=== PATIENT | male | born 1940 | race Caucasian/White ===

== ENCOUNTER 2021-10-01 15:18 | Outpatient (CLI) | payer MEDICARE | END 2021-10-01 15:19 | disposition home or self-care (01) | LOC: ULT 15:18 | PROVIDERS: ATTEND Family Medicine | DX: L72.9 Follicular cyst of the skin and subcutaneous tissue, unspecified (principal); R60.0 Localized edema | CPT/HCPCS: 76999 ==

== ENCOUNTER 2022-02-22 19:30 | Outpatient (CLI) | payer MEDICARE | END 2022-02-22 19:31 | disposition home or self-care (01) | LOC: SLEEPLAB 19:30 | PROVIDERS: ATTEND Family Medicine | DX: G47.33 Obstructive sleep apnea (adult) (pediatric) (principal); R53.83 Other fatigue; G47.61 Periodic limb movement disorder; E66.9 Obesity, unspecified; R06.83 Snoring; G47.10 Hypersomnia, unspecified; G47.52 REM sleep behavior disorder; Z68.35 Body mass index [BMI] 35.0-35.9, adult | CPT/HCPCS: 95811 ==

== ENCOUNTER 2022-06-22 15:15 | Outpatient (CLI) | payer MEDICARE ==
[2022-06-22 17:31] LABS: Hemoglobin 11.5 g/dL (13.5-17.5); Mean Corpuscular HGB CONC 32.2 g/dL (32.0-36.0); Mean Corpuscular Hemoglobin 28.8 pg (27.0-33.0); Mean Corpuscular Volume 89.5 fl (81.2-95.1); Mean Platelet Volume 11.6 fl (7.4-10.4); Platelet Count 273 10x3/uL (150-450); Red Blood Cell (RBC) Count 3.99 10x6/uL (4.32-5.72); White Blood Cell (WBC) Count 7.5 10x3/uL (3.5-10.5)
[2022-06-22 17:46] LABS: INR-International Normal Ratio 0.9; PTT 25.8 sec (22.0-33.0); Prothrombin Time 9.9 sec (9.5-12.1)
[2022-06-22 17:47] LABS: Anion Gap 19 mmol/L (10-20); BUN (Urea Nitrogen) 34 mg/dL (8.4-25.7); Calc. Creatinine Clearance 0 mL/min (70-130); Calcium 9.5 mg/dL (7.8-10.44); Carbon Dioxide 23 mmol/L (23-31); Chloride 99 mmol/L (98-107); Estimated GFR 42; Glucose 315 mg/dL (83-110); Potassium 4.7 mmol/L (3.5-5.1); Sodium 136 mmol/L (136-145)
== END 2022-06-22 15:16 | disposition home or self-care (01) ==
LOC: LABBT 15:15
PROVIDERS: ATTEND Surgery
DX: Z01.812 Encounter for preprocedural laboratory examination (principal); M51.26 Other intervertebral disc displacement, lumbar region; M48.062 Spinal stenosis, lumbar region with neurogenic claudication
CPT/HCPCS: 80048; 85027; 85610; 85730

== ENCOUNTER 2022-06-25 06:06 | Inpatient (IN) | payer MEDICARE ==
[2022-06-22 15:58] VITALS: BMI 31.4
[2022-06-25] MEDS ORDERED: HYDROmorphone 0.5 MG/0.5 ML SYRINGE ONE (06:31)
[2022-06-25] MEDS ORDERED: Dexmedetomidine 200 MCG/2 ML VIAL ONE (06:31)
[2022-06-25] MEDS ORDERED: fentaNYL PF 100 MCG/2 ML SYRINGE ONE (06:31)
[2022-06-25] MEDS ORDERED: Thrombin 5000 UNITS/5 ML VIAL ONE (06:42)
[2022-06-25] MEDS ORDERED: Vancomycin 1 GM VIAL ONE (06:42)
[2022-06-25] MEDS ORDERED: Sodium Chloride 0.9% 100 ML ONE (07:20)
[2022-06-25] MEDS ORDERED: CEFAZOLIN 2 GM VIAL ONE (07:20)
[2022-06-25] MEDS ORDERED: Metoclopramide HCl 10 MG/2 ML VIAL ONE (07:39)
[2022-06-25] MEDS ORDERED: Rocuronium Bromide 10 MG/ML (10ML VIAL) ONE (07:39)
[2022-06-25] MEDS ORDERED: Ondansetron PF 4 MG/2 ML Vial ONE ×2 (07:39)
[2022-06-25] MEDS ORDERED: PHENYLEPHRINE-NS 100 MCG/ML 10 ML SYRINGE ONE ×2 (07:39→09:26)
[2022-06-25] MEDS ORDERED: Lidocaine 1% PF 5 ML VIAL ONE (07:39)
[2022-06-25] MEDS ORDERED: PROPOFOL 200 MG/20 ML VIAL ONE (07:39)
[2022-06-25] MEDS ORDERED: Dexamethasone 20 MG/5 ML VIAL ONE (07:39)
[2022-06-25] MEDS ORDERED: Phenylephrine 10 MG/ML VIAL ONE (09:26)
[2022-06-25] MEDS ORDERED: Phenylephrine 1% Nasal Spray 15 ML BOT ONE (09:26)
[2022-06-25] MEDS ORDERED: SUGAMMADEX SODIUM 200 MG/2 ML VIAL ONE (10:38)
[2022-06-25] MEDS ORDERED: fentaNYL 50 mcg/mL 1 mL Vial ONE (12:02)
[2022-06-25] MEDS ORDERED: HYDROcodone/Acetaminophen 7.5/325 mg Tablet PO PRN (12:03)
[2022-06-25] MEDS ORDERED: Promethazine HCl 25 MG/ML VIAL IVPB PRN (12:03)
[2022-06-25] MEDS ORDERED: traMADol HCl 50 MG TAB PO PRN (12:03)
[2022-06-25] MEDS ORDERED: Acetaminophen 325 MG TAB PO PRN (12:03)
[2022-06-25] MEDS ORDERED: Morphine 2 MG/ML VIAL SLOW IVP PRN (12:03)
[2022-06-25] MEDS ORDERED: Ondansetron PF 4 MG/2 ML Vial IVP PRN (12:03)
[2022-06-25] MEDS ORDERED: diphenhydrAMINE 25 MG CAP PO PRN (12:03)
[2022-06-25] MEDS ORDERED: Diazepam 5 MG TAB PO PRN (12:06)
[2022-06-25] MEDS ORDERED: hydrALAZINE 20 MG/ML VIAL SLOW IVP PRN (12:06)
[2022-06-25] MEDS: Sodium Chloride 0.9% 1,000 ML IV SCH (13:40)
[2022-06-25 14:01] LABS: Hemoglobin 10.9 g/dL (14.0-18.0)
[2022-06-25] MEDS: CEFAZOLIN 2 GM in Sodium Chloride 0.9% 100 ML IVPB SCH ×2 (14:37→21:29)
[2022-06-25] MEDS: metFORMIN 500 MG TAB PO SCH (16:27)
[2022-06-25] MEDS: Acetaminophen/Codeine 30-300mg Tablet PO PRN ×2 (16:27→21:26)
[2022-06-25] MEDS: rOPINIRole HCl 1 MG TAB PO SCH ×2 (16:27→21:41)
[2022-06-25] MEDS: Gabapentin 300 MG CAP PO SCH (21:27)
[2022-06-25] MEDS: Atorvastatin Calcium 40 MG TAB PO SCH (21:28)
[2022-06-25] MEDS ORDERED: tiZANidine HCl 4 MG TAB PO PRN (23:06)
[2022-06-26] MEDS ORDERED: HumaLOG 300 UNITS/3 ML VIAL SC PRN (00:13)
[2022-06-26] MEDS ORDERED: Dextrose 50% Abboject 50 ML SYRINGE SLOW IVP PRN (00:13)
[2022-06-26] MEDS ORDERED: Dextrose 5% in Water 1,000 ML IV PRN (00:13)
[2022-06-26] MEDS ORDERED: Insulin Regular 300 UNITS/3 ML VIAL SC SCH (00:30)
[2022-06-26] MEDS: HYDROcodone/Acetaminophen 5/325 mg Tablet PO PRN ×2 (00:33→11:19)
[2022-06-26] MEDS: Sodium Chloride 0.9% 1,000 ML IV SCH ×2 (02:43→15:39)
[2022-06-26 05:27] LABS: #Lymphocytes 1.1 thou/uL (1.20-3.40); #Monocytes 0.9 thou/uL (0.11-0.59); %Basophils 0.2 % (0.0-1.0); %Eosinophils 0.4 % (0.0-10.0); %Lymphocytes 12.4 % (21.0-51.0); %Monocytes 9.6 % (0.0-10.0); %Neutrophils 77.3 % (42.0-75.0); Mean Corpuscular HGB CONC 34.5 g/dL (32.0-36.0); Mean Corpuscular Hemoglobin 31.5 pg (27.0-31.0); Mean Corpuscular Volume 91.4 fl (78.0-98.0); Mean Platelet Volume 9.2 fL (7.4-10.4); Platelet Count 183 10x3/uL (130-400); Red Blood Cell (RBC) Count 3.17 mill/uL (4.70-6.10); White Blood Cell (WBC) Count 9.1 10x3/uL (4.8-10.8)
[2022-06-26 05:32] LABS: Hemoglobin A1c 9.5 % (4.0-6.0)
[2022-06-26 05:46] LABS: Anion Gap 13 mmol/L (10-20); BUN (Urea Nitrogen) 28 mg/dL (8.4-25.7); Calc. Creatinine Clearance 58 mL/min (70-130); Calcium 8.8 mg/dL (7.8-10.44); Carbon Dioxide 23 mmol/L (23-31); Chloride 101 mmol/L (98-107); Estimated GFR 50; Glucose 329 mg/dL (83-110); Potassium 4.2 mmol/L (3.5-5.1); Sodium 133 mmol/L (136-145)
[2022-06-26] MEDS: CEFAZOLIN 2 GM in Sodium Chloride 0.9% 100 ML IVPB SCH ×3 (06:50→21:02)
[2022-06-26] MEDS ORDERED: VITAMIN E MIXED PO SCH (09:00)
[2022-06-26] MEDS: Acetaminophen/Codeine 30-300mg Tablet PO PRN (09:00)
[2022-06-26] MEDS ORDERED: [UNRECOGNIZED DRUG - OTHER] PO SCH (09:00)
[2022-06-26] MEDS ORDERED: UBIDECARENONE PO SCH (09:00)
[2022-06-26] MEDS: Gabapentin 300 MG CAP PO SCH ×2 (09:01→20:20)
[2022-06-26] MEDS: Lisinopril 5 MG TAB PO SCH (09:01)
[2022-06-26] MEDS: metFORMIN 500 MG TAB PO SCH ×2 (09:01→17:19)
[2022-06-26] MEDS: Pioglitazone HCl 15 MG TAB PO SCH (09:01)
[2022-06-26] MEDS: Alogliptin 25 MG TAB PO SCH (09:01)
[2022-06-26] MEDS: rOPINIRole HCl 1 MG TAB PO SCH ×3 (09:07→20:25)
[2022-06-26] MEDS: HumaLOG 300 UNITS/3 ML VIAL SC PRN ×2 (12:48→17:20)
[2022-06-26] MEDS: Atorvastatin Calcium 40 MG TAB PO SCH (20:20)
[2022-06-26] MEDS: HYDROcodone/Acetaminophen 10/325 mg Tablet PO PRN (20:21)
[2022-06-27 05:11] LABS: #Eosinphils 0.2 thou/uL (0.0-0.7); #Lymphocytes 1.3 thou/uL (1.20-3.40); #Neutrophils 6.8 thou/uL (1.40-6.50); %Basophils 0.3 % (0.0-1.0); %Eosinophils 2.2 % (0.0-10.0); %Lymphocytes 13.7 % (21.0-51.0); %Neutrophils 72.8 % (42.0-75.0); Hemoglobin 8.2 g/dL (14.0-18.0); Mean Corpuscular Hemoglobin 29.5 pg (27.0-31.0); Mean Corpuscular Volume 92.2 fl (78.0-98.0); Platelet Count 150 10x3/uL (130-400); RBC Distribution Width 13.1 % (11.5-14.5); Red Blood Cell (RBC) Count 2.79 mill/uL (4.70-6.10); White Blood Cell (WBC) Count 9.4 10x3/uL (4.8-10.8)
[2022-06-27] MEDS: CEFAZOLIN 2 GM in Sodium Chloride 0.9% 100 ML IVPB SCH (05:27)
[2022-06-27] MEDS: HYDROcodone/Acetaminophen 10/325 mg Tablet PO PRN (05:27)
[2022-06-27 05:30] LABS: Anion Gap 12 mmol/L (10-20); BUN (Urea Nitrogen) 31 mg/dL (8.4-25.7); Calc. Creatinine Clearance 53 mL/min (70-130); Calcium 7.9 mg/dL (7.8-10.44); Carbon Dioxide 22 mmol/L (23-31); Chloride 100 mmol/L (98-107); Estimated GFR 45; Glucose 287 mg/dL (83-110); Potassium 4.1 mmol/L (3.5-5.1); Sodium 130 mmol/L (136-145)
[2022-06-27] MEDS: Sodium Chloride 0.9% 1,000 ML IV SCH ×2 (05:48→17:37)
[2022-06-27] MEDS ORDERED: [UNRECOGNIZED DRUG - OTHER] PO SCH (09:00)
[2022-06-27] MEDS ORDERED: CHONDR MSM1 PO SCH (09:00)
[2022-06-27] MEDS ORDERED: GLUCOSAM PO SCH (09:00)
[2022-06-27] MEDS ORDERED: MANG PO SCH (09:00)
[2022-06-27] MEDS ORDERED: D3 PO SCH (09:00)
[2022-06-27] MEDS: metFORMIN 500 MG TAB PO SCH ×2 (09:03→17:37)
[2022-06-27] MEDS: Gabapentin 300 MG CAP PO SCH ×2 (09:03→20:45)
[2022-06-27] MEDS: rOPINIRole HCl 1 MG TAB PO SCH ×3 (09:04→20:45)
[2022-06-27] MEDS: Pioglitazone HCl 15 MG TAB PO SCH (09:04)
[2022-06-27] MEDS: Alogliptin 25 MG TAB PO SCH (09:04)
[2022-06-27] MEDS: HumaLOG 300 UNITS/3 ML VIAL SC PRN ×4 (09:04→21:53)
[2022-06-27] MEDS: Lisinopril 5 MG TAB PO SCH (10:35)
[2022-06-27] MEDS: tiZANidine HCl 4 MG TAB PO PRN (13:39)
[2022-06-27] MEDS ORDERED: Sodium Chloride 0.9% 250 ML 250 ML IVPB SCH (18:00)
[2022-06-27] MEDS: Atorvastatin Calcium 40 MG TAB PO SCH (20:45)
[2022-06-28] MEDS: tiZANidine HCl 4 MG TAB PO PRN (02:47)
[2022-06-28] MEDS: Acetaminophen/Codeine 30-300mg Tablet PO PRN (02:49)
[2022-06-28] MEDS: Sodium Chloride 0.9% 1,000 ML IV SCH (04:08)
[2022-06-28 05:24] LABS: #Basophils 0.1 thou/uL (0.0-0.2); #Eosinphils 0.2 thou/uL (0.0-0.7); #Lymphocytes 0.8 thou/uL (1.20-3.40); #Neutrophils 7.6 thou/uL (1.40-6.50); %Basophils 1.3 % (0.0-1.0); %Eosinophils 2.3 % (0.0-10.0); %Lymphocytes 8.2 % (21.0-51.0); %Monocytes 9.8 % (0.0-10.0); %Neutrophils 78.4 % (42.0-75.0); Hemoglobin 7.8 g/dL (14.0-18.0); Mean Corpuscular HGB CONC 32.6 g/dL (32.0-36.0); Mean Corpuscular Hemoglobin 30.4 pg (27.0-31.0); Mean Corpuscular Volume 93.2 fl (78.0-98.0); Mean Platelet Volume 9.5 fL (7.4-10.4); Platelet Count 148 10x3/uL (130-400); Red Blood Cell (RBC) Count 2.55 mill/uL (4.70-6.10); White Blood Cell (WBC) Count 9.7 10x3/uL (4.8-10.8)
[2022-06-28 05:44] LABS: Anion Gap 13 mmol/L (10-20); BUN (Urea Nitrogen) 29 mg/dL (8.4-25.7); Calc. Creatinine Clearance 68 mL/min (70-130); Calcium 7.7 mg/dL (7.8-10.44); Carbon Dioxide 21 mmol/L (23-31); Chloride 102 mmol/L (98-107); Estimated GFR 60; Glucose 225 mg/dL (83-110); Potassium 4.2 mmol/L (3.5-5.1); Sodium 132 mmol/L (136-145)
[2022-06-28] MEDS: HumaLOG 300 UNITS/3 ML VIAL SC PRN ×2 (06:22→13:48)
[2022-06-28] MEDS: Pioglitazone HCl 15 MG TAB PO SCH (08:23)
[2022-06-28] MEDS: rOPINIRole HCl 1 MG TAB PO SCH ×2 (08:23→17:07)
[2022-06-28] MEDS: Gabapentin 300 MG CAP PO SCH (08:24)
[2022-06-28] MEDS: metFORMIN 500 MG TAB PO SCH (08:24)
[2022-06-28] MEDS: Alogliptin 25 MG TAB PO SCH (08:24)
[2022-06-28] MEDS ORDERED: Insulin Glargine 30 UNITS/0.3 ML VIAL SC SCH ×2 (09:30→21:00)
[2022-06-28] MEDS ORDERED: Ketorolac Tromethamine 30 MG/ML VIAL IVP SCH (10:45)
[2022-06-28] MEDS: Lisinopril 5 MG TAB PO SCH (13:51)
[2022-06-28] MEDS ORDERED: Gabapentin 300 MG CAP PO SCH (15:00)
[2022-06-28 16:03] VITALS: BP 127/77; TEMP 98.3
[2022-06-28] MEDS ORDERED: Ketorolac Tromethamine 30 MG/ML VIAL IVP PRN (17:00)
== END 2022-06-28 17:15 | disposition swing bed (61) | DRG 519 ==
LOC: SDC 06:06 → SURG A 12:01 → OBSVTOIN 06-26 13:17
PROVIDERS: ADMIT Surgery; ATTEND Surgery
PROC: 0SB20ZZ Excision of Lumbar Vertebral Disc, Open Approach (ICD-10-PCS; principal; 2022-06-25)
PROC: 01NB0ZZ Release Lumbar Nerve, Open Approach (ICD-10-PCS; 2022-06-25)
PROC: 30233N1 Transfusion of Nonautologous Red Blood Cells into Peripheral Vein, Percutaneous Approach (ICD-10-PCS; 2022-06-28)
DX: M48.062 Spinal stenosis, lumbar region with neurogenic claudication (principal); D62 Acute posthemorrhagic anemia; M51.26 Other intervertebral disc displacement, lumbar region; M54.16 Radiculopathy, lumbar region; E11.65 Type 2 diabetes mellitus with hyperglycemia; I10 Essential (primary) hypertension; E78.5 Hyperlipidemia, unspecified; I25.10 Atherosclerotic heart disease of native coronary artery without angina pectoris; D50.9 Iron deficiency anemia, unspecified; I35.0 Nonrheumatic aortic (valve) stenosis; G25.81 Restless legs syndrome; Z95.5 Presence of coronary angioplasty implant and graft; Z87.891 Personal history of nicotine dependence; Z79.84 Long term (current) use of oral hypoglycemic drugs; Z79.899 Other long term (current) drug therapy
CPT/HCPCS: 36415; 36416; 36430; 80048; 83036; 85014; 85018; 85025; 86850; 86900; 86901; 93970; 96365; 96376; C1889; G0378; J1100; J1170; J1815; J2370; J2405; J2704; J2765; J3010; J3370; J3490; J7050; P9016

== ENCOUNTER 2022-09-10 19:00 | Outpatient (CLI) | payer MEDICARE | END 2022-09-10 19:01 | disposition home or self-care (01) | LOC: SLEEPLAB 19:00 | PROVIDERS: ATTEND Orthopaedic Surgery | DX: G47.33 Obstructive sleep apnea (adult) (pediatric) (principal); R53.83 Other fatigue; G47.61 Periodic limb movement disorder; E66.9 Obesity, unspecified; I25.10 Atherosclerotic heart disease of native coronary artery without angina pectoris; G25.81 Restless legs syndrome; K21.9 Gastro-esophageal reflux disease without esophagitis; I12.9 Hypertensive chronic kidney disease with stage 1 through stage 4 chronic kidney disease, or unspecified chronic kidney disease; E11.22 Type 2 diabetes mellitus with diabetic chronic kidney disease; N18.9 Chronic kidney disease, unspecified; M48.00 Spinal stenosis, site unspecified; H91.90 Unspecified hearing loss, unspecified ear; Z68.35 Body mass index [BMI] 35.0-35.9, adult | CPT/HCPCS: 95810 ==

== ENCOUNTER 2023-12-02 06:19 | Day surgery (SDC) | payer MEDICARE ==
[2023-12-01 11:28] VITALS: BMI 30.7
[2023-12-02] MEDS ORDERED: PROPOFOL 40 ML ONE (06:57)
[2023-12-02] MEDS ORDERED: Lidocaine 2% PF 5 ML VIAL ONE (06:57)
[2023-12-02] MEDS ORDERED: PROPOFOL 20 ML ONE (08:21)
== END 2023-12-02 09:44 | disposition home or self-care (01) ==
LOC: SDC 06:19
PROVIDERS: ATTEND Internal Medicine
PROC: 0D968ZX Drainage of Stomach, Via Natural or Artificial Opening Endoscopic, Diagnostic (ICD-10-PCS; principal; 2023-12-02)
PROC: 0DBK8ZZ Excision of Ascending Colon, Via Natural or Artificial Opening Endoscopic (ICD-10-PCS; 2023-12-02)
DX: D12.2 Benign neoplasm of ascending colon (principal); K31.7 Polyp of stomach and duodenum; K64.8 Other hemorrhoids; K57.30 Diverticulosis of large intestine without perforation or abscess without bleeding; J45.909 Unspecified asthma, uncomplicated; I10 Essential (primary) hypertension; E78.00 Pure hypercholesterolemia, unspecified; K21.9 Gastro-esophageal reflux disease without esophagitis; Z79.899 Other long term (current) drug therapy
CPT/HCPCS: 43239; 45385; 82962; J2704; 36416; 88305; 88342